=== PATIENT | male | born 1980 | race Caucasian/White ===

== ENCOUNTER 2022-03-17 23:34 | Inpatient (IN) ==
--- NOTE | 2022-03-17 23:56 | Emergency Department Note ---
History of Present Illness General Chief complaint: Mental Health Evaluation Stated complaint: 302 Time Seen by Provider: 03/17/22 23:38 History of Present Illness 41-year-old male presents emergency department via police reportedly is under 302 evaluation for suicidal ideation. Patient is undergoing a divorce with his and had texted her stating that he wanted to and suicidal ideation and that he was going to harm his dog. Patient states that he is under a lot of stress he around the holidays is thinking about his family who is currently . Patient states that he has been drinking whiskey over the past week. Patient denies current suicidal ideation states that he called crisis and spoke to them as well. Patient also states that he has good support with 2 friends that live locally. Patient denies any other ingestion. There are no other mitigating or alleviating factors. However, patient's 302 petition states that he wanted to harm himself he also wanted to harm his pet dog. Home Medications Medication Instructions Recorded Confirmed Type aspirin 81 mg tablet,delayed 81 mg PO DAILY 01/27/22 03/18/22 History release chlorthalidone 25 mg tablet 25 mg PO QAM 01/27/22 03/18/22 History losartan 100 mg tablet 100 mg PO DAILY 01/27/22 03/18/22 History metformin 500 mg tablet,extended 1,500 mg PO QAM 01/27/22 03/18/22 History release 24hr amlodipine 5 mg tablet 5 mg PO DAILY 03/18/22 03/18/22 History gabapentin 100 mg capsule 100 mg PO TID 03/18/22 03/18/22 History Allergies Allergy/AdvReac Type Severity Reaction Status Date / Time Sulfa (Sulfonamide Allergy Unknown Unknown Verified 01/27/22 19:47 Antibiotics) Past Med/Surg History Medical History History of CVA (cerebrovascular accident) Hypertension No pertinent family history Surgical History History of lumbar surgery Social History Smoking Status: Current every day smoker Tobacco Type: Cigarettes Preferred Language: [place] Feels Safe at Home: Yes Review of Systems A total of 10 systems reviewed and were otherwise negative Constitutional: no fever Psychiatric: + depression, + suicidal ideation and + anxiety Physical Exam Vital Signs Vital Signs - 24 hr 03/17/22 23:53 03/18/22 01:33 03/18/22 03:12 Temperature 36.8 C Temperature Source Oral Pulse Rate 109 H Pulse Rate [Finger] 92 H 90 Pulse Rhythm [Finger] Regular Pulse Strength [Finger] Normal Respiratory Rate 16 18 18 Respiratory Effort / Characteristics Non-Labored Spontaneous Non-Labored Respiratory Depth Normal Normal Respiratory Pattern Regular Blood Pressure 180/113 H Blood Pressure [Right Arm] 171/104 H 163/96 H Blood Pressure Mean 135 Blood Pressure Mean [Right Arm] 126 118 Blood Pressure Position [Right Arm] Semi-fowlers Lying Pulse Oximetry 96 94 95 Oxygen Delivery Method Room Air Room Air Room Air Sepsis Recent Fever Within 48 Hours No Sepsis New/Unexplained Change in Mental Status No Sepsis Action Taken by Nursing No Action Required GENERAL: Patient is awake alert in no acute distress patient is resting comfortably and showing no signs of anxiety EYES: The conjunctivae are clear. The pupils are round and reactive. EARS, NOSE, MOUTH AND THROAT: The nose is without any evidence of any deformity. Mucous membranes are moist. Tongue is midline. NECK: The neck is nontender and supple. RESPIRATORY: Normal respiratory effort is noted there is no evidence of wheezing rhonchi or rales CARDIOVASCULAR: Regular rate and rhythm noted there no murmurs rubs or gallops normal S1 normal S2. GASTROINTESTINAL: The abdomen is soft. Abdomen is nontender. BACK: No midline tenderness or or step-off noted range of motion in flexion extension as well as rotation no signs of muscle spasm noted MUSCULOSKELETAL/EXTREMITIES: There is no evidence of gross deformity full range of motion is noted in the hips and shoulders. SKIN: There is no obvious evidence of any rash. There are no petechiae, pallor or cyanosis noted. NEUROLOGIC: Patient is awake alert and oriented x3 strength is symmetric PSYCH: Suicidal ideation Course Reevaluation(s) Reevaluation #1: Patient is resting in no distress. Blood pressure is less than 170 systolic. Patient is medically cleared for psychiatric evaluation and admission at 3:30 AM Time: 03:39 Administered Medications Discontinued Medications Amlodipine Besylate (Amlodipine Besylate 5 Mg Tab) 5 mg PO NOW ONE Stop: 03/18/22 03:08 Last Admin: 03/18/22 03:20 Dose: 5 mg Documented By: LRS Losartan Potassium (Losartan Potassium 50 Mg Tab) 100 mg PO NOW STA Stop: 03/18/22 03:08 Last Admin: 03/18/22 03:20 Dose: 100 mg Documented By: KYLIE Medical Decision Making Medical Records Attestation: I reviewed the patient's medical records. Home Medications Current Medication List: was personally reviewed by me Laboratory Data Attestation: I reviewed the patient's lab results. Result diagrams: 03/18/22 00:15 03/18/22 00:15 Lab Results 03/18/22 03/18/22 03/18/22 Range/Units 00:15 00:15 00:15 WBC 7.04 (4.8-10.8) K/ul RBC 5.12 (4.63-6.08) M/uL Hgb 16.1 (14.0-18.0) g/dl Hct 44.7 (40.1-51.0) % MCV 87.3 (80.0-100.0) fL MCH 31.4 (25.0-34.0) pg MCHC 36.0 (32.0-36.0) g/dL RDW Std Deviation 39.6 (36.4-46.3) fL RDW Coeff of Miguel 12.3 (11.5-14.5) % Plt Count 246 (130-400) K/uL MPV 9.1 L (9.4-12.4) fL Immature Gran % (Auto) 0.4 % Neut % (Auto) 65.9 % Lymph % (Auto) 19.3 % [place] % (Auto) 10.9 % Eos % (Auto) 2.4 % Baso % (Auto) 1.1 % Neut # (Auto) 4.63 (1.4-6.5) K/uL Lymph # (Auto) 1.36 (1.2-3.4) K/uL [place] # (Auto) 0.77 (0.24-0.82) K/uL Eos # (Auto) 0.17 (0-0.50) K/uL Baso # (Auto) 0.08 (0-0.2) K/uL Immature Gran # (Auto) 0.03 H (0.00-0.02) K/uL Sodium 137 (136-145) mmol/L Potassium 3.5 (3.5-5.1) mmol/L Chloride 102 (98-107) mmol/L Carbon Dioxide 27 (21-32) mmol/L Anion Gap 8 (3-11) BUN 9 (6-23) mg/dl Creatinine 0.65 (0.6-1.4) mg/dl Est Cr Clr Drug Dosing 169.2 ml/min Est GFR ( Amer) 139.1 ml/min Est GFR (Non-Af Amer) 120.0 ml/min BUN/Creatinine Ratio 13.8 (10-20) Glucose 234 H (70-99(Fasting)) mg/dl Calcium 9.1 (8.5-10.1) mg/dl Total Bilirubin 0.6 (0.2-1.0) mg/dl AST 18 (13-39) U/L ALT 22 (7-52) U/L Alkaline Phosphatase 63 (34-104) U/L Total Protein 6.9 (6.0-8.3) gm/dl Albumin 4.2 (3.4-5.0) gm/dl Globulin 2.7 (2.5-4.0) gm/dl Albumin/Globulin Ratio 1.6 (0.9-2) TSH 2.897 (0.300-4.500) uIu/ml Urine Color Urine Appearance (Clear) Urine pH (4.5-7.5) Ur Specific [place] (1.000-1.030) Urine Protein (Negative) Urine Glucose (UA) (Negative) Urine Ketones (Negative) Urine Blood (Negative) Urine Nitrite (Negative) Urine Bilirubin (Negative) Urine Urobilinogen (Negative) Ur Leukocyte Esterase (Negative) Urine WBC (Auto) (0-5) /hpf Urine RBC (Auto) (0-4) /hpf U Hyaline Cast (Auto) (0-5) /lpf U Epithel Cells (Auto) (0-5) /lpf Urine Bacteria (Auto) (Negative) Salicylates (3.0-30) mg/dl Urine Opiates Screen (Neg) Ur Methadone, Qual (Neg) Acetaminophen (10-30) ug/ml Urine Barbiturates (Neg) Ur Phencyclidine (PCP) (Neg) U Amphetamin/Meth Scrn (Neg) MDMA (Ecstasy) Screen (Neg) U Benzodiazepines Scrn (Neg) Ur Cocaine Metabolite (Neg) U Marijuana (THC) Screen (Neg) Ethyl Alcohol mg/dL (<10.0) mg/dl SARS-CoV-2, RNA, NAAT (NEGATIVE) 03/18/22 03/18/22 03/18/22 Range/Units 00:15 00:15 00:15 WBC (4.8-10.8) K/ul RBC (4.63-6.08) M/uL Hgb (14.0-18.0) g/dl Hct (40.1-51.0) % MCV (80.0-100.0) fL MCH (25.0-34.0) pg MCHC (32.0-36.0) g/dL RDW Std Deviation (36.4-46.3) fL RDW Coeff of Miguel (11.5-14.5) % Plt Count (130-400) K/uL MPV (9.4-12.4) fL Immature Gran % (Auto) % Neut % (Auto) % Lymph % (Auto) % [place] % (Auto) % Eos % (Auto) % Baso % (Auto) % Neut # (Auto) (1.4-6.5) K/uL Lymph # (Auto) (1.2-3.4) K/uL [place] # (Auto) (0.24-0.82) K/uL Eos # (Auto) (0-0.50) K/uL Baso # (Auto) (0-0.2) K/uL Immature Gran # (Auto) (0.00-0.02) K/uL Sodium (136-145) mmol/L Potassium (3.5-5.1) mmol/L Chloride (98-107) mmol/L Carbon Dioxide (21-32) mmol/L Anion Gap (3-11) BUN (6-23) mg/dl Creatinine (0.6-1.4) mg/dl Est Cr Clr Drug Dosing ml/min Est GFR ( Amer) ml/min Est GFR (Non-Af Amer) ml/min BUN/Creatinine Ratio (10-20) Glucose (70-99(Fasting)) mg/dl Calcium (8.5-10.1) mg/dl Total Bilirubin (0.2-1.0) mg/dl AST (13-39) U/L ALT (7-52) U/L Alkaline Phosphatase (34-104) U/L Total Protein (6.0-8.3) gm/dl Albumin (3.4-5.0) gm/dl Globulin (2.5-4.0) gm/dl Albumin/Globulin Ratio (0.9-2) TSH (0.300-4.500) uIu/ml Urine Color Urine Appearance (Clear) Urine pH (4.5-7.5) Ur Specific [place] (1.000-1.030) Urine Protein (Negative) Urine Glucose (UA) (Negative) Urine Ketones (Negative) Urine Blood (Negative) Urine Nitrite (Negative) Urine Bilirubin (Negative) Urine Urobilinogen (Negative) Ur Leukocyte Esterase (Negative) Urine WBC (Auto) (0-5) /hpf Urine RBC (Auto) (0-4) /hpf U Hyaline Cast (Auto) (0-5) /lpf U Epithel Cells (Auto) (0-5) /lpf Urine Bacteria (Auto) (Negative) Salicylates < 3.0 L (3.0-30) mg/dl Urine Opiates Screen (Neg) Ur Methadone, Qual (Neg) Acetaminophen < 3 L (10-30) ug/ml Urine Barbiturates (Neg) Ur Phencyclidine (PCP) (Neg) U Amphetamin/Meth Scrn (Neg) MDMA (Ecstasy) Screen (Neg) U Benzodiazepines Scrn (Neg) Ur Cocaine Metabolite (Neg) U Marijuana (THC) Screen (Neg) Ethyl Alcohol mg/dL < 10.0 (<10.0) mg/dl SARS-CoV-2, RNA, NAAT NEGATIVE (NEGATIVE) 03/18/22 03/18/22 Range/Units Unknown Unknown WBC (4.8-10.8) K/ul RBC (4.63-6.08) M/uL Hgb (14.0-18.0) g/dl Hct (40.1-51.0) % MCV (80.0-100.0) fL MCH (25.0-34.0) pg MCHC (32.0-36.0) g/dL RDW Std Deviation (36.4-46.3) fL RDW Coeff of Miguel (11.5-14.5) % Plt Count (130-400) K/uL MPV (9.4-12.4) fL Immature Gran % (Auto) % Neut % (Auto) % Lymph % (Auto) % [place] % (Auto) % Eos % (Auto) % Baso % (Auto) % Neut # (Auto) (1.4-6.5) K/uL Lymph # (Auto) (1.2-3.4) K/uL [place] # (Auto) (0.24-0.82) K/uL Eos # (Auto) (0-0.50) K/uL Baso # (Auto) (0-0.2) K/uL Immature Gran # (Auto) (0.00-0.02) K/uL Sodium (136-145) mmol/L Potassium (3.5-5.1) mmol/L Chloride (98-107) mmol/L Carbon Dioxide (21-32) mmol/L Anion Gap (3-11) BUN (6-23) mg/dl Creatinine (0.6-1.4) mg/dl Est Cr Clr Drug Dosing ml/min Est GFR ( Amer) ml/min Est GFR (Non-Af Amer) ml/min BUN/Creatinine Ratio (10-20) Glucose (70-99(Fasting)) mg/dl Calcium (8.5-10.1) mg/dl Total Bilirubin (0.2-1.0) mg/dl AST (13-39) U/L ALT (7-52) U/L Alkaline Phosphatase (34-104) U/L Total Protein (6.0-8.3) gm/dl Albumin (3.4-5.0) gm/dl Globulin (2.5-4.0) gm/dl Albumin/Globulin Ratio (0.9-2) TSH (0.300-4.500) uIu/ml Urine Color Yellow Urine Appearance Clear (Clear) Urine pH 6.0 (4.5-7.5) Ur Specific [place] 1.013 (1.000-1.030) Urine Protein Trace H (Negative) Urine Glucose (UA) 2+ H (Negative) Urine Ketones Negative (Negative) Urine Blood Negative (Negative) Urine Nitrite Negative (Negative) Urine Bilirubin Negative (Negative) Urine Urobilinogen Negative (Negative) Ur Leukocyte Esterase Negative (Negative) Urine WBC (Auto) 0 (0-5) /hpf Urine RBC (Auto) 0-4 (0-4) /hpf U Hyaline Cast (Auto) 1-5 (0-5) /lpf U Epithel Cells (Auto) 5-10 H (0-5) /lpf Urine Bacteria (Auto) Negative (Negative) Salicylates (3.0-30) mg/dl Urine Opiates Screen Neg (Neg) Ur Methadone, Qual Neg (Neg) Acetaminophen (10-30) ug/ml Urine Barbiturates Neg (Neg) Ur Phencyclidine (PCP) Neg (Neg) U Amphetamin/Meth Scrn Neg (Neg) MDMA (Ecstasy) Screen Neg (Neg) U Benzodiazepines Scrn Neg (Neg) Ur Cocaine Metabolite Neg (Neg) U Marijuana (THC) Screen Neg (Neg) Ethyl Alcohol mg/dL (<10.0) mg/dl SARS-CoV-2, RNA, NAAT (NEGATIVE) MDM Narrative Medical decision making differential diagnosis includes suicidal ideation, anxiety, depression, alcohol abuse. Plan is to check labs, have case management interview this patient for further psychiatric disposition Patient was evaluated for suicidal ideation. Patient is under a 302 warrant, patient's blood pressure has decreased without any intervention however he was given his home meds amlodipine and losartan. Patient is medically clear for psychiatric evaluation at 3:30 AM Impression & Plan Suicidal ideation, HTN (hypertension) Discharge Plan Visit Data Chief Complaint: Mental Health Evaluation Stated Complaint: 302 ED Provider: Supa Chaudhry Discharge Problem: Suicidal ideation, HTN (hypertension) Patient Disposition: Admitted As Inpatient Forms Stand Alone Forms: [facility], Suicide Prevention Resources Prescriptions Prescriptions: No Action amlodipine 5 mg tablet 5 mg PO DAILY gabapentin 100 mg capsule 100 mg PO TID chlorthalidone 25 mg Tablet 25 mg PO QAM aspirin [Aspir-Low] 81 mg Tablet,Delayed Release (Dr/Ec) 81 mg PO DAILY losartan 100 mg Tablet 100 mg PO DAILY metformin 500 mg Tablet Extended Release 24hr 1,500 mg PO QAM Referrals Referrals: Elizabeth Cleaning DO [Primary Care Provider] -
[2022-03-18 00:57] LABS: Basophils # (auto) 0.08 K/uL (0-0.2); Basophils % (auto) 1.1 %; Eosinophils # (auto) 0.17 K/uL (0-0.50); Eosinophils % (auto) 2.4 %; Hematocrit (blood only) 44.7 % (40.1-51.0); Hemoglobin 16.1 g/dl (14.0-18.0); Immature Granulocytes # (auto) 0.03 K/uL (0.00-0.02); Immature Granulocytes % (auto) 0.4 %; Lymphocytes # (auto) 1.36 K/uL (1.2-3.4); Lymphocytes % (auto) 19.3 %; Mean Corpuscular Hemoglobin 31.4 pg (25.0-34.0); Mean Corpuscular Volume 87.3 fL (80.0-100.0); Mean Platelet Volume 9.1 fL (9.4-12.4); Monocytes # (auto) 0.77 K/uL (0.24-0.82); Monocytes % (auto) 10.9 %; Neutrophils # (auto) 4.63 K/uL (1.4-6.5); Neutrophils % (auto) 65.9 %; Platelet Count 246 K/uL (130-400); RDW Coefficient of Variation 12.3 % (11.5-14.5); RDW Standard Deviation 39.6 fL (36.4-46.3); Red Blood Count 5.12 M/uL (4.63-6.08); White Blood Count 7.04 K/ul (4.8-10.8)
[2022-03-18 01:20] LABS: Acetaminophen < 3 ug/ml (10-30); Salicylate < 3.0 mg/dl (3.0-30)
[2022-03-18 01:21] LABS: Albumin Globulin Ratio 1.6 (0.9-2); Albumin Level 4.2 gm/dl (3.4-5.0); BUN Creatinine Ratio 13.8 (10-20); Bilirubin,Total 0.6 mg/dl (0.2-1.0); Calcium 9.1 mg/dl (8.5-10.1); Creatinine Clr Calc Pharmacy 169.2 ml/min; Est GFR (African American) 139.1 ml/min; Globulin 2.7 gm/dl (2.5-4.0); Potassium 3.5 mmol/L (3.5-5.1); Total Protein 6.9 gm/dl (6.0-8.3)
[2022-03-18 01:51] LABS: Appearance Urine Clear (Clear); Bacteria Urine Automated Negative (Negative); Bilirubin Urine Negative (Negative); Blood Urine Negative (Negative); Color Urine Yellow; Glucose Urine UA 2+ (Negative); Ketones Urine Negative (Negative); Leukocyte Esterase Urine Negative (Negative); Nitrite Urine Negative (Negative); Protein Urine Trace (Negative); RBC Urine Automated 0-4 /hpf (0-4); Specific Gravity Urine 1.013 (1.000-1.030); Urobilinogen Urine Negative (Negative); WBC Urine Automated 0 /hpf (0-5)
[2022-03-18 02:22] LABS: Amphetamines+Metham, Urine Neg (Neg); Barbiturates, Urine Neg (Neg); Benzodiazepine, Urine Neg (Neg); Cocaine, Urine Neg (Neg); MDMA (Ecstacy), Urine Neg (Neg); Methadone, Urine Neg (Neg); Opiate, Urine Neg (Neg); Phencyclidine, Urine Neg (Neg)
[2022-03-18] MEDS ORDERED: LOSARTAN POTASSIUM 50 MG TAB PO STA (03:07)
[2022-03-18] MEDS ORDERED: amLODIPine BESYLATE 5 MG TAB PO ONE (03:07)
[2022-03-18] MEDS ORDERED: hydrOXYzine HCl 25 MG TAB PO PRN ×2 (03:38)
[2022-03-18] MEDS ORDERED: MAGNESIUM HYDROXIDE SUSP 30 ML UDC PO PRN (03:38)
[2022-03-18] MEDS ORDERED: ACETAMINOPHEN 325 MG TAB PO PRN (03:38)
[2022-03-18] MEDS ORDERED: BISMUTH SUBSALICYLATE LIQD 236 ML PO PRN (03:38)
[2022-03-18] MEDS ORDERED: ALUMINUM/MAGNESIUM SUSP 30 ML UDC PO PRN (03:38)
[2022-03-18] MEDS ORDERED: SODIUM CHLORIDE 0.65% NA SOLN 45 ML (OCEAN) PRN (03:38)
--- NOTE | 2022-03-18 10:55 | History & Physical ---
Date of Service March 18, 2022 Impression / Recommendations Impression 41 yo man with history of impulsivity admitted on 302 commitment after sending his a text message indicating his plan to by suicide which he is now minimizing as a ploy to upset her in the context of their impending separation. Diagnostically unclear, he denies any symptoms of major depression, may be alcohol-induced mood change component though he denies any problematic use or that it played a role in events leading to admission. Based on history has experienced likely hypnopompic hallucinations and possible intermittent explosive disorder versus antisocial traits. Given text messages and reported statements made to healthcare administrative assistant prior to admission there remains concern for his acute safety and he is in need of inpatient psychiatric hospitalization. Discussed medication treatment options in detail. Discussed risks, benefits and alternatives. Patient would like to start and consented to Wellbutrin for tobacco cessation and potential benefit for impulsivity. Reviewed side effects including but not limited to: elevated BP, elevated HR, insomnia, decreased appetite, lowered seizure threshold, potential to increase irritability. (1) Impulse control disorder in adult: (2) Suicidal ideation: (3) HTN (hypertension): (4) Tobacco dependence with current use: Plan 03/18/2022: The patient was admitted to the [facility] ([facility]) on q15 min checks (behavioral with suicide precautions) for safety. The patient will participate in group, recreational, and milieu therapies and will be offered additional individual and family sessions as clinically appropriate. -Start Wellbutrin XL 150mg Inventory Assets Strengths: supportive relationships with some friends, likes his job, willing to get treatment Needs: safety and stabilization, medication adjustment, additional coping skills, in creased outpatient services Suicide Risk Level Suicide Risk Level: Moderate (q15 min suicide checks) (statements of SI prior to admission and impulsivity but denies SI and depression now, feels safe in the hospital, able to safety contract and agrees to let nursing/staff know should they develop plan, intent or feel unable to remain safe. ) Risk Factors Assessment Male: Yes : Yes Do You Have Access To A Gun?: No Health Problems: Yes Previous Attempt: No Family History of Suicide: No Previous Psychiatric Hospitalization: No Protective Factors Assessment : Yes (but ) Responsible for Young Children: No Employed: Yes ([employer]) Stable Relationships: Yes Psychiatric History Identifying Data GABBY HERNANDEZ is a 41-year-old M who currently lives in [place] with his , has no formal psychiatric history, and was admitted on 03/18/22 03:38 on a 302 involuntary commitment for SI. Chief Complaint "I'm kicking myself in the a*s, I should have thought through what I was doing but I just starting typing". History of Present Illness Gabby presents for psychiatric admission after sending his , who he is in the process of from, a text indicating SI and concern that he might also harm the family dog resulting in 302 petition and upheld commitment. In the ED he minimized these events and denied SI and depression. Today he describes that his caught him texting with another woman a few months ago and since then they have been fighting more and moving toward separation. He denies any precipitating events leading to the text he sent his yesterday except that "nothing I said made her mad and that pi*sed me off so I knew a way to get under her skin was to send her a text about suicide". He notes that anything he said to his "would not piss her off so that's why I said that" stating he has never thought of suicide and that "dying is one of my biggest fears". He recalls saying to his "I'm taking the dog with me" but that he meant he would want to bring the dog with him to his friends when they separate and he moves out, not that he would take the dog with him in dying. He denies being intoxicated when doing this or in the events that followed. He recalls crisis called him b efore the state police arrived but denies ever telling them he wrote suicide letters to his nieces. He also denies ever telling his step-son to stab him. Today states "I have a h*ll of a lot more reasons to live than I do to " including his family, friends, and himself. 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 He feels he would never do this. He acknowledges he can be very impulsive. He denies any depressive symptoms but does find the holidays difficult as he has lost multiple family members (dad, mom, aunt) over the last few years. He has supportive friends including one who is also going through a divorce so he finds this beneficial. Notes he can struggle with anger if "I let it build up" then it will explode and he can yell but then he walks away. Denies anxiety "why worry about what I can't control". Sleep is good. Appetite is good, though notes he usually only eats once a day due to being busy. His marriage has been conflictual for the last few years and he wants to separate even though they've been living together. He denies any violence violence between them. He is planning to move in with a friend in [place]. He is not currently prescribed any psychiatric medications. Does take gabapentin 100mg TID, he isn't sure why but notes it might be for pinched nerve pain. Psychiatric ROS notable for no current nor history of symptoms of joseph, psychosis, PTSD, OCD nor eating disorder. A few times in the middle of the night he had a visual hallucination of seeing his mother who has but then fell back asleep. Past Psychiatric History Current Psychiatric Diagnosis: NA Outpatient Services: none Previous Psych Admissions: n/a Do You Have Access To A Gun?: No History of Previous Suicide Attempt: No Past Medication Trials: n/a Past Head Trauma/Neuro History History of Concussion/Seizure: No Allergies Allergy/AdvReac Type Severity Reaction Status Date / Time Sulfa (Sulfonamide Allergy Unknown Unknown Verified 01/27/22 19:47 Antibiotics) Home Medications Medication Instructions Recorded Confirmed Type aspirin 81 mg tablet,delayed 81 mg PO DAILY 01/27/22 03/18/22 History release chlorthalidone 25 mg tablet 25 mg PO QAM 01/27/22 03/18/22 History losartan 100 mg tablet 100 mg PO DAILY 01/27/22 03/18/22 History metformin 500 mg tablet,extended 1,500 mg PO QAM 01/27/22 03/18/22 History release 24hr amlodipine 5 mg tablet 5 mg PO DAILY 03/18/22 03/18/22 History gabapentin 100 mg capsule 100 mg PO TID 03/18/22 03/18/22 History Family History Family History of: Other-List under Comment (paternal side of the family with anger issues) Alcohol History Hx of Alcohol Use Over the Past 12 Months: Yes (Every couple of weeks binge drinks.) AUDIT Total Score: 2 Lately has been drinking "just a little bit more" with drank a bottle of Sai Funez over the last 3-4 days which was more than normal for him. He notes he used to drink a lot more and cut down about 18 years ago. Smoking Use Have You Smoked or Used Tobacco Products in the Last 30 Days: Yes tobacco type: cigarettes Smoking Status: Current every day smoker Smoking packs per day: 1 Substance History Hx of Prescription Med Misuse Over the Past 12 Months: No Hx of Over the Counter Med Misuse Over the Past 12 Months: No Hx of Inhalent Misuse Over the Past 12 Months: No Hx of Organic Substance Use Over the Past 12 Months: No Hx of Illegal Substances/Street Drug Use Over Past 12 Months: No Problems as a Result of Past Substance Use: None Identified Personal History Living Arrangements: Home Highest Grade Completed: Did Not Graduate High School (went to 10th grade) 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 Incarcerated for 2 years in the past) Hx Traumatic Life Events: No Patient History Medical History History of CVA (cerebrovascular accident) Hypertension No pertinent family history Surgical History History of lumbar surgery Social History Smoking Status: Current every day smoker Tobacco Type: Cigarettes Preferred Language: Turkmen Communication Ability: Effective Contract Management Specialist Required: No Beliefs That Will Affect Care: None Feels Safe at Home: Yes Assistive Devices: None Review of Systems Review of Systems: All systems reviewed & are unremarkable except as noted in HPI & below Physical Exam Psychiatric: Orientation: alert and oriented x 3 Apperance: appropriately dressed and appropriately groomed Eye Contact: good eye contact Motor Behavior: no abnormal motor movements Speech: normal rate/rhythm/volume of speech Affect: + constricted affect (but jokes at times) Mood: no depressed mood and no anxious mood Thought Process: goal directed thought process Thought Content: reality based without delusions Suicidal Tho ughts: denies suicidal thoughts, denies suicidal plan and denies suicidal intent Homicidal Thoughts: denies homicidal thoughts Hallucinations: no auditory hallucinations and no visual hallucinations Cognition: recent memory grossly intact, remote memory grossly intact, attention grossly intact and language grossly intact Estimated Intelligence: consistent with education level Insight: + limited insight Judgement: + limited judgement Vital Signs (Past 24 Hours): Last Vital Signs Temp 36.7 C 03/18/22 04:41 Pulse 91 H 03/18/22 04:41 Resp 16 03/18/22 04:41 BP 165/94 H 03/18/22 04:41 Pulse Ox 96 03/18/22 04:41 O2 Del Method 03/18/22 04:41 Exam Statement: A physical exam was performed in the ED by Dr. Chaudhry for the purposes of medical clearance. I accept that physical as correct and adequate for the purposes of the inpatient physical exam. Results & Data ([facility]) Laboratory Results Laboratory Results - last 24 hr 03/18/22 03/18/22 03/18/22 00:15 00:15 00:15 WBC 7.04 RBC 5.12 Hgb 16.1 Hct 44.7 MCV 87.3 MCH 31.4 MCHC 36.0 RDW Std Deviation 39.6 RDW Coeff of Miguel 12.3 Plt Count 246 MPV 9.1 L Immature Gran % (Auto) 0.4 Neut % (Auto) 65.9 Lymph % (Auto) 19.3 Warren % (Auto) 10.9 Eos % (Auto) 2.4 Baso % (Auto) 1.1 Neut # (Auto) 4.63 Lymph # (Auto) 1.36 Warren # (Auto) 0.77 Eos # (Auto) 0.17 Baso # (Auto) 0.08 Immature Gran # (Auto) 0.03 H Sodium 137 Potassium 3.5 Chloride 102 Carbon Dioxide 27 Anion Gap 8 BUN 9 Creatinine 0.65 Est Cr Clr Drug Dosing 169.2 Est GFR ( Amer) 139.1 Est GFR (Non-Af Amer) 120.0 BUN/Creatinine Ratio 13.8 Glucose 234 H Calcium 9.1 Total Bilirubin 0.6 AST 18 ALT 22 Alkaline Phosphatase 63 Total Protein 6.9 Albumin 4.2 Globulin 2.7 Albumin/Globulin Ratio 1.6 TSH 2.897 Urine Color Urine Appearance Urine pH Ur Specific [place] Urine Protein Urine Glucose (UA) Urine Ketones Urine Blood Urine Nitrite Urine Bilirubin Urine Urobilinogen Ur Leukocyte Esterase Urine WBC (Auto) Urine RBC (Auto) U Hyaline Cast (Auto) U Epithel Cells (Auto) Urine Bacteria (Auto) Salicylates Urine Opiates Screen Ur Methadone, Qual Acetaminophen Urine Barbiturates Ur Phencyclidine (PCP) U Amphetamin/Meth Scrn MDMA (Ecstasy) Screen U Benzodiazepines Scrn Ur Cocaine Metabolite U Marijuana (THC) Screen Ethyl Alcohol mg/dL SARS-CoV-2, RNA, NAAT 03/18/22 03/18/22 03/18/22 00:15 00:15 00:15 WBC RBC Hgb Hct MCV MCH MCHC RDW Std Deviation RDW Coeff of Miguel Plt Count MPV Immature Gran % (Auto) Neut % (Auto) Lymph % (Auto) Warren % (Auto) Eos % (Auto) Baso % (Auto) Neut # (Auto) Lymph # (Auto) Warren # (Auto) Eos # (Auto) Baso # (Auto) Immature Gran # (Auto) Sodium Potassium Chloride Carbon Dioxide Anion Gap BUN Creatinine Est Cr Clr Drug Dosing Est GFR ( Amer) Est GFR (Non-Af Amer) BUN/Creatinine Ratio Glucose Calcium Total Bilirubin AST ALT Alkaline Phosphatase Total Protein Albumin Globulin Albumin/Globulin Ratio TSH Urine Color Urine Appearance Urine pH Ur Specific [place] Urine Protein Urine Glucose (UA) Urine Ketones Urine Blood Urine Nitrite Urine Bilirubin Urine Urobilinogen Ur Leukocyte Esterase Urine WBC (Auto) Urine RBC (Auto) U Hyaline Cast (Auto) U Epithel Cells (Auto) Urine Bacteria (Auto) Salicylates < 3.0 L Urine Opiates Screen Ur Methadone, Qual Acetaminophen < 3 L Urine Barbiturates Ur Phencyclidine (PCP) U Amphetamin/Meth Scrn MDMA (Ecstasy) Screen U Benzodiazepines Scrn Ur Cocaine Metabolite U Marijuana (THC) Screen Ethyl Alcohol mg/dL < 10.0 SARS-CoV-2, RNA, NAAT NEGATIVE 03/18/22 03/18/22 Unknown Unknown WBC RBC Hgb Hct MCV MCH MCHC RDW Std Deviation RDW Coeff of Miguel Plt Count MPV Immature Gran % (Auto) Neut % (Auto) Lymph % (Auto) Warren % (Auto) Eos % (Auto) Baso % (Auto) Neut # (Auto) Lymph # (Auto) Warren # (Auto) Eos # (Auto) Baso # (Auto) Immature Gran # (Auto) Sodium Potassium Chloride Carbon Dioxide Anion Gap BUN Creatinine Est Cr Clr Drug Dosing Est GFR ( Amer) Est GFR (Non-Af Amer) BUN/Creatinine Ratio Glucose Calcium Total Bilirubin AST ALT Alkaline Phosphatase Total Protein Albumin Globulin Albumin/Globulin Ratio TSH Urine Color Yellow Urine Appearance Clear Urine pH 6.0 Ur Specific [place] 1.013 Urine Protein Trace H Urine Glucose (UA) 2+ H Urine Ketones Negative Urine Blood Negative Urine Nitrite Negative Urine Bilirubin Negative Urine Urobilinogen Negative Ur Leukocyte Esterase Negative Urine WBC (Auto) 0 Urine RBC (Auto) 0-4 U Hyaline Cast (Auto) 1-5 U Epithel Cells (Auto) 5-10 H Urine Bacteria (Auto) Negative Salicylates Urine Opiates Screen Neg Ur Methadone, Qual Neg Acetaminophen Urine Barbiturates Neg Ur Phencyclidine (PCP) Neg U Amphetamin/Meth Scrn Neg MDMA (Ecstasy) Screen Neg U Benzodiazepines Scrn Neg Ur Cocaine Metabolite Neg U Marijuana (THC) Screen Neg Ethyl Alcohol mg/dL SARS-CoV-2, RNA, NAAT Current Inpatient Medications Current Inpatient Medications: Current Inpatient Medications Acetaminophen (Acetaminophen 325 Mg Tab) 650 mg PO Q4H PRN PRN Reason: Headache or Minor Fever Stop: 04/17/22 03:37 Al Hydrox/Mg Hydrox/Simethicone (Aluminum/Magnesium Susp 30 Ml Udc) 30 ml PO Q4H PRN PRN Reason: GI Upset Stop: 04/17/22 03:37 Bismuth Subsalicylate (Bismuth Subsalicylate Liqd 236 Ml) 15 ml PO PRN PRN PRN Reason: Loose Stool Stop: 04/17/22 03:37 Hydroxyzine HCl (Hydroxyzine Hcl 25 Mg Tab) 50 mg PO HSZ PRN PRN Reason: Insomnia Stop: 04/17/22 03:37 Hydroxyzine HCl (Hydroxyzine Hcl 25 Mg Tab) 25 mg PO Q4H PRN PRN Reason: Anxiety Stop: 04/17/22 03:37 Magnesium Hydroxide (Magnesium Hydroxide Susp 30 Ml Udc) 30 ml PO DAILY PRN PRN Reason: Constipation Stop: 04/17/22 03:37 Sodium Chloride (Sodium Chloride 0.65% Na Soln 45 Ml ([place])) 1 - 2 sprays NA PRN PRN PRN Reason: Nasal Dryness/Congestion Stop: 04/17/22 03:37
[2022-03-18] MEDS: ASPIRIN 81 MG ECTAB PO SCH (13:35)
[2022-03-18] MEDS: buPROPion XL 150 MG TABCR PO SCH (13:35)
[2022-03-18] MEDS: CHLORTHALIDONE 25 MG TAB PO SCH (13:36)
[2022-03-18] MEDS: amLODIPine BESYLATE 5 MG TAB PO SCH (13:37)
[2022-03-18] MEDS: LOSARTAN POTASSIUM 50 MG TAB PO SCH (13:37)
[2022-03-18] MEDS: NICOTINE 14 MG/24 HR PATCH TD SCH (13:38)
[2022-03-18] MEDS: GABAPENTIN 100 MG CAP PO SCH ×2 (14:22→20:26)
[2022-03-19] MEDS: ASPIRIN 81 MG ECTAB PO SCH (09:04)
[2022-03-19] MEDS: LOSARTAN POTASSIUM 50 MG TAB PO SCH (09:04)
[2022-03-19] MEDS: GABAPENTIN 100 MG CAP PO SCH ×3 (09:04→20:38)
[2022-03-19] MEDS: buPROPion XL 150 MG TABCR PO SCH (09:04)
[2022-03-19] MEDS: amLODIPine BESYLATE 5 MG TAB PO SCH (09:04)
[2022-03-19] MEDS: metFORMIN HCL ER 500 MG TABCR PO SCH (09:04)
[2022-03-19] MEDS: CHLORTHALIDONE 25 MG TAB PO SCH (09:04)
[2022-03-19] MEDS: NICOTINE 14 MG/24 HR PATCH TD SCH (09:05)
[2022-03-19] MEDS ORDERED: NICOTINE POLACRILEX 2 MG GUM MT PRN ×2 (10:49→11:00)
[2022-03-19] MEDS: NICOTINE 21 MG/24 HR TDSY TD SCH (11:58)
--- NOTE | 2022-03-19 15:43 | Psychiatric Progress Note ---
Date of Service March 19, 2022 Impression / Recommendations Impression 41 yo man with history of impulsivity admitted on 302 commitment after sending his a text message indicating his plan to by suicide which he is now minimizing as a ploy to upset her in the context of their impending separation. Diagnostically unclear, he denies any symptoms of major depression, may be alcohol-induced mood change component though he denies any problematic use or that it played a role in events leading to admission. Based on history has experienced likely hypnopompic hallucinations and possible intermittent explosive disorder versus antisocial traits. Given text messages and reported statements made to associate professor of musicology prior to admission there remains concern for his acute safety and he is in need of inpatient psychiatric hospitalization. MNPR due to history of impulsivity and anger 03/19/22: More forthcoming today in reflecting how marriage conflict has negatively impacted his mood and caused stress. Tolerating Wellbutrin. Processed healthier coping skills. (1) Depression: (2) Impulse control disorder in adult: (3) Suicidal ideation: (4) HTN (hypertension): (5) Tobacco dependence with current use: Plan 03/19/22: Continue current medication and tx plan. 03/18/2022: The patient was admitted to the [facility] ([facility] inpatient mental health unit) on q15 min checks (behavioral with suicide precautions) for safety. The patient will participate in group, recreational, and milieu therapies and will be offered additional individual and family sessions as clinically appropriate. -Start Wellbutrin XL 150mg Inventory Assets Strengths: supportive relationships with some friends, likes his job, willing to get treatment Needs: safety and stabilization, medication adjustment, additional coping skills, increased outpatient services Suicide Risk Level Suicide Risk Level: Moderate (q15 min suicide checks) (statements of SI prior to admission and impulsivity but denies SI and depression now, feels safe in the hospital, able to safety contract and agrees to let nursing/staff know should they develop plan, intent or feel unable to remain safe. ) Risk Factors Assessment Male: Yes : Yes Do You Have Access To A Gun?: No Health Problems: Yes Previous Attempt: No Family History of Suicide: No Previous Psychiatric Hospitalization: No Protective Factors Assessment : Yes (but ) Responsible for Young Children: No Employed: Yes ([employer] [place] [employer] Stable Relationships: Yes Interval History Identifying Information GABBY HERNANDEZ is a 41-year-old M who currently lives in [place] with his , has no formal psychiatric history, and was admitted on 03/18/22 03:38 on a 302 involuntary commitment for SI. Chief Complaint "I was being stupid, I wasn't thinking when I sent it". Review of Systems Sleep Information Total Hours of Sleep: 7 Sleep Comments: Meal Information Percent Meal Consumed - Breakfast: 100 Percent Meal Consumed - Lunch: 100 Percent Meal Consumed - Dinner: 100 Subjective Subjective Patient was seen & assessed and interval progress reviewed with treatment team nursing and social work. Slept well. attending groups. Denies SI. Processed things that lead him to sending his the suicide note. processed impact of their relationship conflict on his mood, he feels he needs to start "living for myself" and thinks moving away from his will help him "feel happy again". No side effects from Wellbutrin. Still having strong nicotine cravings. Physical Exam Psychiatric Orientation: alert and oriented x 3 Apperance: appropriately dressed and appropriately groomed Eye Contact: good eye contact Motor Behavior: no abnormal motor movements Speech: normal rate/rhythm/volume of speech Affect: + constricted affect Mood: + depressed mood and + anxious mood Thought Process: goal directed thought process Thought Content: reality based without delusions Suicidal Thoughts: denies suicidal thoughts, denies suicidal plan and denies suicidal intent Homicidal Thoughts: denies homicidal thoughts Hallucinations: no auditory hallucinations and no visual hallucinations Cognition: recent memory grossly intact, remote memory grossly intact, attention grossly intact and language grossly intact Estimated Intelligence: consistent with education level Insight: + limited insight Judgement: + limited judgement Vital Signs (Past 24 Hours) Last Vital Signs Temp 36.4 C 03/19/22 06:30 Pulse 93 H 03/19/22 06:30 Resp 18 03/19/22 06:30 BP 137/89 03/19/22 06:32 Pulse Ox 96 03/18/22 04:41 O2 Del Method 03/18/22 04:41 Results & Data ([facility]) Laboratory Results Laboratory Results - last 24 hr 03/19/22 08:01 POC Glucose 220 H Current Inpatient Medications Current Inpatient Medications: Current Inpatient Medications Acetaminophen (Acetaminophen 325 Mg Tab) 650 mg PO Q4H PRN PRN Reason: Headache or Minor Fever Stop: 04/17/22 03:37 Al Hydrox/Mg Hydrox/Simethicone (Aluminum/Magnesium Susp 30 Ml Udc) 30 ml PO Q4H PRN PRN Reason: GI Upset Stop: 04/17/22 03:37 Amlodipine Besylate (Amlodipine Besylate 5 Mg Tab) 5 mg PO DAILY [facility] Stop: 04/17/22 11:29 Last Admin: 03/19/22 09:04 Dose: 5 mg Aspirin (Aspirin 81 Mg Ectab) 81 mg PO DAILY [facility] Stop: 04/17/22 11:29 Last Admin: 03/19/22 09:04 Dose: 81 mg Bismuth Subsalicylate (Bismuth Subsalicylate Liqd 236 Ml) 15 ml PO PRN PRN PRN Reason: Loose Stool Stop: 04/17/22 03:37 Bupropion HCl (Bupropion Xl 150 Mg Tabcr) 150 mg PO QAM [facility] Stop: 04/17/22 11:44 Last Admin: 03/19/22 09:04 Dose: 150 mg Chlorthalidone (Chlorthalidone 25 Mg Tab) 25 mg PO QAM [facility] Stop: 04/17/22 11:29 Last Admin: 03/19/22 09:04 Dose: 25 mg Gabapentin (Gabapentin 100 Mg Cap) 100 mg PO TID [facility] Stop: 04/17/22 13:59 Last Admin: 03/19/22 13:10 Dose: 100 mg Hydroxyzine HCl (Hydroxyzine Hcl 25 Mg Tab) 50 mg PO HSZ PRN PRN Reason: Insomnia Stop: 04/17/22 03:37 Hydroxyzine HCl (Hydroxyzine Hcl 25 Mg Tab) 25 mg PO Q4H PRN PRN Reason: Anxiety Stop: 04/17/22 03:37 Losartan Potassium (Losartan Potassium 50 Mg Tab) 100 mg PO DAILY [facility] Stop: 04/17/22 11:29 Last Admin: 03/19/22 09:04 Dose: 100 mg Magnesium Hydroxide (Magnesium Hydroxide Susp 30 Ml Udc) 30 ml PO DAILY PRN PRN Reason: Constipation Stop: 04/17/22 03:37 Metformin HCl (Metformin Hcl Er 500 Mg Tabcr) 1,500 mg PO QAM [facility] Stop: 04/18/22 08:59 Last Admin: 03/19/22 09:04 Dose: 1,500 mg Miscellaneous (Remove Nicoderm Patch) 1 each N/A DAILY@0859 [facility] Stop: 01/29/23 08:58 Nicotine (Nicotine 21 Mg/24 Hr Tdsy) 21 mg TD QAM [facility]OVANNY Stop: 04/18/22 10:59 Last Admin: 03/19/22 11:58 Dose: 21 mg Nicotine Polacrilex (Nicotine Polacrilex 2 Mg Gum) 1 piece MT Q1H PRN PRN Reason: tobacco cravings Stop: 04/18/22 10:48 Sodium Chloride (Sodium Chloride 0.65% Na Soln 45 Ml ([place])) 1 - 2 sprays NA PRN PRN PRN Reason: Nasal Dryness/Congestion Stop: 04/17/22 03:37 Mental Health & Subst Abuse Tx Psychiatrist Name of Psychiatrist: None Therapist Name of Therapist: [facility] Therapist's Time of Therapist Appointment: 2:15pm Therapy Appointment Comment: [address] [facility], [place], [place] [address] (they will email intake link) Sandwich Board Carrier Name of Sandwich Board Carrier: NA Post Discharge Appointments Primary Care Physician Name Of Family Doctor/PCP: [facility] Date of Appointment with PCP: 03/24/22 Time of Appointment with PCP: 3:00, please arrive at 2:45 Provider Appointment Comment: [address] [place] [address] [place] [id number] Contact Information Discharge Discharge Address: [address] [place] [address] [place], [id number]
[2022-03-20] MEDS: NICOTINE 21 MG/24 HR TDSY TD SCH (08:39)
[2022-03-20] MEDS: CHLORTHALIDONE 25 MG TAB PO SCH (08:40)
[2022-03-20] MEDS: LOSARTAN POTASSIUM 50 MG TAB PO SCH (08:40)
[2022-03-20] MEDS: GABAPENTIN 100 MG CAP PO SCH ×2 (08:40→13:08)
[2022-03-20] MEDS: buPROPion XL 150 MG TABCR PO SCH (08:41)
[2022-03-20] MEDS: ASPIRIN 81 MG ECTAB PO SCH (08:41)
[2022-03-20] MEDS: amLODIPine BESYLATE 5 MG TAB PO SCH (08:41)
[2022-03-20] MEDS: metFORMIN HCL ER 500 MG TABCR PO SCH (08:41)
--- NOTE | 2022-03-20 12:37 | Discharge Summary ---
Date of Service March 20, 2022 History of Present Illness Solitario presents for psychiatric admission after sending his , who he is in the process of from, a text indicating SI and concern that he might also harm the family dog resulting in 302 petition and upheld commitment. In the ED he minimized these events and denied SI and depression. Today he describes that his caught him texting with another woman a few months ago and since then they have been fighting more and moving toward separation. He denies any precipitating events leading to the text he sent his yesterday except that "nothing I said made her mad and that pi*sed me off so I knew a way to get under her skin was to send her a text about suicide". He notes that anything he said to his "would not piss her off so that's why I said that" stating he has never thought of suicide and that "dying is one of my biggest fears". He recalls saying to his "I'm taking the dog with me" but that he meant he would want to bring the dog with him to his friends when they separate and he moves out, not that he would take the dog with him in dying. He denies being intoxicated when doing this or in the events that followed. He recalls crisis called him before the state police arrived but denies ever telling them he wrote suicide letters to his nieces. He also denies ever telling his step-son to stab him. Today states "I have a h*ll of a lot more reasons to live than I do to " including his family, friends, and himself. 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 He feels he would never do this. He acknowledges he can be very impulsive. He denies any depressive symptoms but does find the holidays difficult as he has lost multiple family members (dad, mom, aunt) over the last few years. He has supportive friends including one who is also going through a divorce so he finds this beneficial. Notes he can struggle with anger if "I let it build up" then it will explode and he can yell but then he walks away. Denies anxiety "why worry about what I can't control". Sleep is good. Appetite is good, though notes he usually only eats once a day due to being busy. His marriage has been conflictual for the last few years and he wants to separate even though they've been living together. He denies any violence violence between them. He is planning to move in with a friend in [place]. He is not currently prescribed any psychiatric medications. Does take gabapentin 100mg TID, he isn't sure why but notes it might be for pinched nerve pain. Psychiatric ROS notable for no current nor history of symptoms of joseph, psychosis, PTSD, OCD nor eating disorder. A few times in the middle of the night he had a visual hallucination of seeing his mother who has but then fell back asleep. Physical Exam Vital Signs (Past 24 Hours) Last Vital Signs Temp 36.4 C 03/20/22 06:38 Pulse 93 H 03/20/22 06:38 Resp 18 03/20/22 06:38 BP 144/88 H 03/20/22 06:39 Pulse Ox 96 03/18/22 04:41 O2 Del Method 03/18/22 04:41 See admission H&P and DOD summary. Principal Diagnosis Impulse control disorder Psychiatric Data See daily stay summary. In short, patient was engaged with the social/therapeutic milieu of the unit, safety was maintained and the patient was cooperative with care. Medication changes included initiation of Wellbutrin XL 150mg qd to help with tobacco cessation, mood and impulsivity and they tolerated this well. A safety plan was completed prior to discharge. He participated in safety planning and in discussions about ways to seek support and recognizing warning signs and utilizing coping skills. Reviewed mobile apps that could be used for additional ways to have their safety plan and contacts easily available should thoughts of SI re-emerge in the future. Reviewed importance of seeking emergency care should SI intensify, worsen or should they feel unsafe in the future which they agree to do. On the day of discharge he stated his mood was "good" and remained future-oriented including moving in with a friend, celebrating EMILEE, going to work, trying to establish a more positive relationship with his as they proceed with divorce and engaging in aftercare appointments for therapy. Day of Discharge Assessment Today the patient voices readiness for discharge. They note improvement in mood and anxiety. They deny thoughts of harm to self or others. Thoughts are organized and they are clinically improved from admission. There is no evidence of psychosis. They improved in the hospital with support and medication adjustments. They agree to take medications as prescribed and keep follow-up appointments. At the time of the discharge they are deemed to be stable and appropriate for outpatient level of care. They are not deemed to be at imminent risk of harm to self or others. They are aware of emergency and crisis services. Knows to call 911 or go to nearest emergency care center if in a crisis which cannot be handled as an outpatient. Transition of Care Transition Of Care Record: was reviewed with the patient Advance Directives Advance Directives Information Provided: No Advance Directives: No Mental Health Advance Directive: No Advance Directives on File: No Living Will: No Power of Instrument Calibrator: No Advance Directives Reason:: Declines as Mental Health Visit. Suicide Risk Level Suicide Risk Level Comments: Acute risk is low given improvement in mood and denial of SI, lack of access to lethal means, hopefulness. Chronic risk is low to moderate given some non- modifiable risk factors including periods of impulsivity, emotional reactivity, pending divorce, but also with protective factors including employed, good social support from a few friends and his brother, sense of responsibility to family and social supports, outpatient care in place, positive coping skills, capacity to establish therapeutic alliance, willingness to engage with treatment and capacity for self-observation. Counseled on ways to reduce acute and chronic risk including engaging with outpatient providers, using safety plan if needed, utilizing supports, and using coping skills. Modifiable risk factors of SI and depression were addressed during hospitalization through development of new coping skills, safety planning, discussions of healthy ways to cope with conflict and medication adjustments. Risk Factors Assessment Male: Yes : Yes Do You Have Access To A Gun?: No Health Problems: Yes Previous Attempt: No Family History of Suicide: No Previous Psychiatric Hospitalization: No Hopelessness: No Protective Factors Assessment : Yes (but ) Responsible for Young Children: No Employed: Yes ([employer]) Stable Relationships: Yes Discharge Data Lab Results 03/18/22 03/18/22 03/18/22 00:15 00:15 00:15 WBC 7.04 RBC 5.12 Hgb 16.1 Hct 44.7 MCV 87.3 MCH 31.4 MCHC 36.0 RDW Std Deviation 39.6 RDW Coeff of Miguel 12.3 Plt Count 246 MPV 9.1 L Immature Gran % (Auto) 0.4 Neut % (Auto) 65.9 Lymph % (Auto) 19.3 [place] % (Auto) 10.9 Eos % (Auto) 2.4 Baso % (Auto) 1.1 Neut # (Auto) 4.63 Lymph # (Auto) 1.36 [place] # (Auto) 0.77 Eos # (Auto) 0.17 Baso # (Auto) 0.08 Immature Gran # (Auto) 0.03 H Sodium 137 Potassium 3.5 Chloride 102 Carbon Dioxide 27 Anion Gap 8 BUN 9 Creatinine 0.65 Est Cr Clr Drug Dosing 169.2 Est GFR ( Amer) 139.1 Est GFR (Non-Af Amer) 120.0 BUN/Creatinine Ratio 13.8 Glucose 234 H POC Glucose Calcium 9.1 Total Bilirubin 0.6 AST 18 ALT 22 Alkaline Phosphatase 63 Total Protein 6.9 Albumin 4.2 Globulin 2.7 Albumin/Globulin Ratio 1.6 TSH 2.897 Urine Color Urine Appearance Urine pH Ur Specific [place] Urine Protein Urine Glucose (UA) Urine Ketones Urine Blood Urine Nitrite Urine Bilirubin Urine Urobilinogen Ur Leukocyte Esterase Urine WBC (Auto) Urine RBC (Auto) U Hyaline Cast (Auto) U Epithel Cells (Auto) Urine Bacteria (Auto) Salicylates Urine Opiates Screen Ur Methadone, Qual Acetaminophen Urine Barbiturates Ur Phencyclidine (PCP) U Amphetamin/Meth Scrn MDMA (Ecstasy) Screen U Benzodiazepines Scrn Ur Cocaine Metabolite U Marijuana (THC) Screen Ethyl Alcohol mg/dL SARS-CoV-2, RNA, NAAT 03/18/22 03/18/22 03/18/22 00:15 00:15 00:15 WBC RBC Hgb Hct MCV MCH MCHC RDW Std Deviation RDW Coeff of Miguel Plt Count MPV Immature Gran % (Auto) Neut % (Auto) Lymph % (Auto) [place] % (Auto) Eos % (Auto) Baso % (Auto) Neut # (Auto) Lymph # (Auto) [place] # (Auto) Eos # (Auto) Baso # (Auto) Immature Gran # (Auto) Sodium Potassium Chloride Carbon Dioxide Anion Gap BUN Creatinine Est Cr Clr Drug Dosing Est GFR ( Amer) Est GFR (Non-Af Amer) BUN/Creatinine Ratio Glucose POC Glucose Calcium Total Bilirubin AST ALT Alkaline Phosphatase Total Protein Albumin Globulin Albumin/Globulin Ratio TSH Urine Color Urine Appearance Urine pH Ur Specific [place] Urine Protein Urine Glucose (UA) Urine Ketones Urine Blood Urine Nitrite Urine Bilirubin Urine Urobilinogen Ur Leukocyte Esterase Urine WBC (Auto) Urine RBC (Auto) U Hyaline Cast (Auto) U Epithel Cells (Auto) Urine Bacteria (Auto) Salicylates < 3.0 L Urine Opiates Screen Ur Methadone, Qual Acetaminophen < 3 L Urine Barbiturates Ur Phencyclidine (PCP) U Amphetamin/Meth Scrn MDMA (Ecstasy) Screen U Benzodiazepines Scrn Ur Cocaine Metabolite U Marijuana (THC) Screen Ethyl Alcohol mg/dL < 10.0 SARS-CoV-2, RNA, NAAT NEGATIVE 03/18/22 03/18/22 03/19/22 Unknown Unknown 08:01 WBC RBC Hgb Hct MCV MCH MCHC RDW Std Deviation RDW Coeff of Miguel Plt Count MPV Immature Gran % (Auto) Neut % (Auto) Lymph % (Auto) [place] % (Auto) Eos % (Auto) Baso % (Auto) Neut # (Auto) Lymph # (Auto) [place] # (Auto) Eos # (Auto) Baso # (Auto) Immature Gran # (Auto) Sodium Potassium Chloride Carbon Dioxide Anion Gap BUN Creatinine Est Cr Clr Drug Dosing Est GFR ( Amer) Est GFR (Non-Af Amer) BUN/Creatinine Ratio Glucose POC Glucose 220 H Calcium Total Bilirubin AST ALT Alkaline Phosphatase Total Protein Albumin Globulin Albumin/Globulin Ratio TSH Urine Color Yellow Urine Appearance Clear Urine pH 6.0 Ur Specific [place] 1.013 Urine Protein Trace H Urine Glucose (UA) 2+ H Urine Ketones Negative Urine Blood Negative Urine Nitrite Negative Urine Bilirubin Negative Urine Urobilinogen Negative Ur Leukocyte Esterase Negative Urine WBC (Auto) 0 Urine RBC (Auto) 0-4 U Hyaline Cast (Auto) 1-5 U Epithel Cells (Auto) 5-10 H Urine Bacteria (Auto) Negative Salicylates Urine Opiates Screen Neg Ur Methadone, Qual Neg Acetaminophen Urine Barbiturates Neg Ur Phencyclidine (PCP) Neg U Amphetamin/Meth Scrn Neg MDMA (Ecstasy) Screen Neg U Benzodiazepines Scrn Neg Ur Cocaine Metabolite Neg U Marijuana (THC) Screen Neg Ethyl Alcohol mg/dL SARS-CoV-2, RNA, NAAT 03/20/22 08:03 WBC RBC Hgb Hct MCV MCH MCHC RDW Std Deviation RDW Coeff of Miguel Plt Count MPV Immature Gran % (Auto) Neut % (Auto) Lymph % (Auto) [place] % (Auto) Eos % (Auto) Baso % (Auto) Neut # (Auto) Lymph # (Auto) [place] # (Auto) Eos # (Auto) Baso # (Auto) Immature Gran # (Auto) Sodium Potassium Chloride Carbon Dioxide Anion Gap BUN Creatinine Est Cr Clr Drug Dosing Est GFR ( Amer) Est GFR (Non-Af Amer) BUN/Creatinine Ratio Glucose POC Glucose 236 H Calcium Total Bilirubin AST ALT Alkaline Phosphatase Total Protein Albumin Globulin Albumin/Globulin Ratio TSH Urine Color Urine Appearance Urine pH Ur Specific [place] Urine Protein Urine Glucose (UA) Urine Ketones Urine Blood Urine Nitrite Urine Bilirubin Urine Urobilinogen Ur Leukocyte Esterase Urine WBC (Auto) Urine RBC (Auto) U Hyaline Cast (Auto) U Epithel Cells (Auto) Urine Bacteria (Auto) Salicylates Urine Opiates Screen Ur Methadone, Qual Acetaminophen Urine Barbiturates Ur Phencyclidine (PCP) U Amphetamin/Meth Scrn MDMA (Ecstasy) Screen U Benzodiazepines Scrn Ur Cocaine Metabolite U Marijuana (THC) Screen Ethyl Alcohol mg/dL SARS-CoV-2, RNA, NAAT Hospital Course (1) Depression: (2) Impulse control disorder in adult: (3) Suicidal ideation: (4) HTN (hypertension): (5) Tobacco dependence with current use: Plan 03/19/22: Continue current medication and tx plan. 03/18/2022: The patient was [facility] on q15 min checks (behavioral with suicide precautions) for safety. The patient will participate in group, recreational, and milieu therapies and will be offered additional individual and family sessions as clinically appropriate. -Start Wellbutrin XL 150mg Mental Health & Subst Abuse Tx Psychiatrist Name of Psychiatrist: None Therapist Name of Therapist: [facility] Therapist's Time of Therapist Appointment: 2:15pm Therapy Appointment Comment: [address] [facility], [place] [address] (they will email intake link) Personal Loan Specialist Name of Personal Loan Specialist: NA Post Discharge Appointments Primary Care Physician Name Of Family Doctor/PCP: [facility] Date of Appointment with PCP: 03/24/22 Time of Appointment with PCP: 3:00, please arrive at 2:45 Provider Appointment Comment: [address] [place] [address], [place] [address] Contact Information Discharge Discharge Address: [address] [place] [address], [place], [address] Discharge Plan Discharge Items Patient Disposition: Home - Self-Care Reason For Visit: MAJOR DEPRESSIVE DISORDER Discharge Diagnosis: Impulse Control Disorder Activity: Resume your previous activity Non-emergency contact: Primary Care Provider and Therapist Call non-emergency contact if: you have any medication questions and your symptoms worsen Follow-up/Referrals: Elizabeth Cleaning DO [Primary Care Provider] - Diet: Regular Addtl Attending Provider Instructions: Optional mobile apps we discussed: -Virtual Hope Box -Suicide Safety Plan SPECIAL CARE INSTRUCTIONS: 1. Follow through with your scheduled aftercare appointments. If unable to keep an appointment, please call to reschedule. 2. Take your medication only as prescribed. Medication should not be changed or stopped without the approval of your doctor. In the event of worsening symptoms or concerns about side effects, contact your doctor immediately. 3. Utilize new healthy coping skills, anger management skills, and stress management skills learned during your hospitalization. Journal feelings and process them with a support person. Identify stressors or situations that may result in relapse, deterioration or inappropriate behaviors and develop a plan to deal with those issues. 4. If your coping skills are ineffective and you are in crisis, contact your outpatient providers for direction. If unable to reach your providers, please call the [facility] CRISIS LINE AT , go to the [facility] walk-in center at [address] [facility], [facility], [place], or go to the closest Emergency Room. 5. Avoid alcohol and un-prescribed drugs. 6. You have been provided with the Mental Health Advance Directives Pamphlet for your review. 7. Your condition is stable for discharge to outpatient level of care, but recovery is an ongoing process. Ifthoughts to harm yourself or others return, follow the safety plan developed during your stay. Planning for a safe return home includes securing weapons. Our treatment team recommends weaponsbe removed from the home until your outpatient provider reassesses your progress. In rare cases where the items themselvescannot be removed, guns and ammunitionshould be secured separatelyand keys stored by a reliable personoutside of the home. If you were admitted on an involuntary commitment, the police or other legal authorities may be involved in this process. AFTERCARE APPOINTMENTS: * Please call your insurance company prior to your scheduled appointment to confirm your aftercare providers are covered. Take your insurance information to your appointments. WHO TO CALL AND WHEN: Medical Emergencies: For questions or emergencies related to your hospital stay, please contact the Inpatient Behavioral Health Unit at [phone]. A psychiatric nursing assistant is on-call 12/10 for the Behavioral Health Unit for emergencies At any time you feel your situation is an emergency, you may also call 911 immediately. Pending Studies at Discharge: No Stand-Alone Forms: My [facility], Smoking Cessation Medications and DC Order Prescriptions: New bupropion HCl 150 mg Tablet Extended Release 24 Hr 150 mg PO QAM 30 Days Qty: 30 0RF Continued amlodipine 5 mg tablet 5 mg PO DAILY gabapentin 100 mg capsule 100 mg PO TID chlorthalidone 25 mg Tablet 25 mg PO QAM aspirin 81 mg Tablet,Delayed Release (Dr/Ec) 81 mg PO DAILY losartan 100 mg Tablet 100 mg PO DAILY metformin 500 mg Tablet Extended Release 24hr 1,500 mg PO QAM Discharge Orders: Discharge Order (Routine); Ordered 03/20/22 Ordered By: Jenifer Kenny/Other Patient Handouts: High Blood Sugar (Hyperglycemia), Hypoglycemia (Low Blood Sugar), Managing Type 2 Diabetes, Diabetes: Meal Planning Admission Data Admit Date/Time: 03/18/22 03:38 Attending Provider: Jenifer Xavier Admit Provider: Jenifer Xavier Primary Care Provider: Elizabeth Cleaning Other Interventions: Discharge Summary Assessment (RN) Last Done: 03/20/22 13:07 PSY Interdisciplinary Discharge Planning Last Done: 03/20/22 13:10 Coding Level of Care Code 91668 D/C day mgmt > 30 min Diagnoses Depression F32.A Impulse control disorder in adult F63.9 Suicidal ideation R45.851 HTN (hypertension) I10 Tobacco dependence with current use F17.200 Time Spent (min) 32
== END 2022-03-20 13:54 | disposition home or self-care (01) | DRG 881 ==
LOC: ED 23:34 → 3S 03-18 03:38